=== PATIENT | female | born 1985 | race Caucasian/White ===

== ENCOUNTER 2020-07-26 17:37 | Observation (INO) ==
[2020-07-26 18:04] LABS: Basophils # 0.1 10*3/uL (0.0-0.2); Basophils % 0.8 % (0.0-0.8); Eosinophils # 0.2 10*3/uL (0.0-0.87); Eosinophils % 2.1 % (0.00-10.9); Hematocrit 43.4 VOL% (35.7-47.0); Hemoglobin 14.3 GM/DL (12.0-16.0); Immature Granulocytes % 0.2 %; Immature Granulocytes Absolute 0.02 #; Lymphocytes # 3.6 10*3/uL (1.4-4.0); Lymphocytes % 41.8 % (21.3-54.2); Mean Corpuscular HGB Conc 32.9 GM/DL (32-36); Mean Platelet Volume 10.7 FL (9.6-12.0); Monocytes % 6.9 % (1.7-12.7); Neutrophils % 48.2 % (38.7-73.9); Platelet Count 216 T/CUMM (130-400); Red Blood Count 4.57 MC/CUMM (3.8-5.5); Red Cell Distribution Width 13.4 % (9.3-17.3); White Blood Count 8.6 T/CUMM (4-12)
[2020-07-26] MEDS ORDERED: methylPREDNISolone SOD SUC 125 MG/2 ML VIAL IV STA (18:19)
[2020-07-26] MEDS ORDERED: ALBUTEROL/IPRATROPIUM 3 ML NEB RESP TX STA (18:19)
[2020-07-26 18:31] LABS: Alanine Aminotransferase 36 U/L (13-56); Alkaline Phosphatase 94 U/L (45-117); Aspartate Amino Transferase 18 U/L (0-37); Bilirubin,Total < 0.39 MG/DL (0.2-1.0); Blood Urea Nitrogen 10 MG/DL (7-18); Calcium 8.4 MG/DL (8.5-10.1); Carbon Dioxide 28 MMOL/L (21-32); Estimated Glom Filtration Rate 80 ML/MIN; Glucose 95 MG/DL (74-106); Osmolality,Calculated 275.5 MOS/KG (273-304); Potassium 4.2 MMOL/L (3.5-5.1); Sodium 139 MMOL/L (136-145)
[2020-07-26] MEDS ORDERED: ONDANSETRON 4 MG/2 ML VIAL IV ONE (18:50)
[2020-07-26] MEDS ORDERED: fentaNYL 100 MCG/2 ML VIAL IV STA (18:50)
[2020-07-26 20:03] LABS: INR 1.2; PT Patient Result 12.7 SECS (9.8-11.9)
[2020-07-26] MEDS ORDERED: ONDANSETRON 4 MG/2 ML VIAL IV PRN (20:08)
[2020-07-26] MEDS ORDERED: DEXTROSE 50% 25 GM/50 ML VIAL IV PRN (20:08)
[2020-07-26] MEDS ORDERED: NICOTINE 21 MG/24 HR PATCH TRANSDERM PRN (20:08)
[2020-07-26] MEDS ORDERED: guaiFENesin/DM ER 600-30 MG TABLET PO PRN (20:08)
[2020-07-26] MEDS ORDERED: GLUCAGON 1 MG VIAL IM PRN (20:08)
[2020-07-26] MEDS ORDERED: ALBUTEROL 2.5 MG/3 ML NEB RESP TX PRN (20:17)
[2020-07-26] MEDS ORDERED: RIZATRIPTAN ODT 5 MG TABLET PO PRN (20:17)
[2020-07-26] MEDS ORDERED: fentaNYL 100 MCG/2 ML VIAL IV PRN (20:18)
[2020-07-26] MEDS ORDERED: ALUM/MAG/SIMETH/LIDO VISC 1:1 30 ML BOTTLE PO ONE (20:18)
[2020-07-26] MEDS ORDERED: HEPARIN DRIP 25,000 UNITS/500 ML PREMIX IV SCH (20:30)
[2020-07-26] MEDS ORDERED: MORPHINE 4 MG/1 ML VIAL IV STA (20:32)
[2020-07-26] MEDS ORDERED: ROSUVASTATIN 10 MG TABLET PO SCH (21:00)
[2020-07-26] MEDS ORDERED: WARFARIN 3 MG TABLET PO SCH (21:00)
[2020-07-26] MEDS ORDERED: DESVENLAFAXINE 50 MG TABLET PO SCH (21:00)
[2020-07-26] MEDS: METOPROLOL TARTRATE 50 MG TABLET PO SCH (23:20)
[2020-07-26] MEDS: OXcarbazepine 300 MG TABLET PO SCH (23:20)
[2020-07-26] MEDS: TOPIRAMATE 25 MG TABLET PO SCH (23:20)
[2020-07-26] MEDS: MORPHINE 4 MG/1 ML VIAL IV PRN (23:21)
[2020-07-27] MEDS: ALBUTEROL 2.5 MG/3 ML NEB RESP TX SCH ×2 (01:40→07:25)
[2020-07-27] MEDS: MORPHINE 4 MG/1 ML VIAL IV PRN ×2 (04:30→09:25)
[2020-07-27 05:43] LABS: Basophils % 0.2 % (0.0-0.8); Hematocrit 39.4 VOL% (35.7-47.0); Hemoglobin 13.4 GM/DL (12.0-16.0); Immature Granulocytes % 0.4 %; Immature Granulocytes Absolute 0.04 #; Lymphocytes # 1.1 10*3/uL (1.4-4.0); Lymphocytes % 12.6 % (21.3-54.2); Mean Corpuscular Volume 91.6 FL (87-102); Mean Platelet Volume 11.7 FL (9.6-12.0); Monocytes % 1.6 % (1.7-12.7); Neutrophils % 85.2 % (38.7-73.9); Platelet Count 209 T/CUMM (130-400); Red Cell Distribution Width 13.3 % (9.3-17.3)
[2020-07-27 06:17] LABS: Risk Ratio 4.09; VLDL CHOLESTEROL 28.2 MG/DL
[2020-07-27 06:21] LABS: INR 1.2; PT Patient Result 12.5 SECS (9.8-11.9)
[2020-07-27 06:31] LABS: Partial Thromboplastin Time 134.8 SECS (23.9-33.8)
[2020-07-27] MEDS ORDERED: PANTOPRAZOLE 40 MG TABLET PO SCH (09:00)
[2020-07-27] MEDS: TOPIRAMATE 25 MG TABLET PO SCH (09:25)
[2020-07-27] MEDS: METOPROLOL TARTRATE 50 MG TABLET PO SCH (09:25)
[2020-07-27] MEDS: OXcarbazepine 300 MG TABLET PO SCH (09:25)
[2020-07-27 12:23] VITALS: BP 118/79
[2020-07-27] MEDS ORDERED: GABAPENTIN 100 MG CAPSULE PO SCH (15:00)
[2020-07-27] MEDS ORDERED: WARFARIN 4 MG TABLET PO ONE (18:00)
== END 2020-07-27 13:27 | disposition home or self-care (01) ==
LOC: N.EDINP 17:37 → N.ED 17:37 → N.TELEN 22:11
PROVIDERS: ADMIT Internal Medicine; ATTEND Internal Medicine